=== PATIENT | female | born 1980 | race Two or more races ===

== ENCOUNTER 2018-03-28 19:39 | Emergency (ER) | payer MEDICARE ==
[~2018-03-28] VITALS: Ht 167.6 cm; Wt 66.4 kg
[2018-03-28] MEDS ORDERED: ICOS1CAP PO (19:55)
[2018-03-28] MEDS ORDERED: ROSU20 PO (19:55)
[2018-03-28] MEDS ORDERED: LISI-660 PO (19:55)
[2018-03-28] MEDS ORDERED: INSULIN REGULAR, HUMAN 100 UNITS/ML IVP ONE ×2 (20:00→22:45)
[2018-03-28] MEDS ORDERED: POTA8CAP10 PO (20:00)
[2018-03-28] MEDS ORDERED: SODIUM CHLORIDE 0.9% 1,000 ML IV ONE (20:00)
[2018-03-28] MEDS ORDERED: INSLAN SQ (20:00)
[2018-03-28] MEDS ORDERED: SERT50TA12 PO (20:00)
[2018-03-28] MEDS ORDERED: METO-296 PO (20:00)
[2018-03-28] MEDS ORDERED: FENO160 PO (20:00)
[2018-03-28] MEDS ORDERED: INSU100V SQ (20:00)
[2018-03-28] MEDS ORDERED: FAMO20 PO (20:01)
[2018-03-28] MEDS ORDERED: ASPI81 PO (20:01)
[2018-03-28 20:22] LABS: BASOPHILS % (AUTO) 1.8 % (0.0-2.0); EOSINOPHILS % (AUTO) 2.6 % (1.0-6.0); HEMATOCRIT 30.8 % (36-46); HEMOGLOBIN 10.2 g/dL (12.0-16.0); LYMPHOCYTES # (AUTO) 1.9 K/uL (1.0-4.8); LYMPHOCYTES % (AUTO) 21.7 % (22.0-44.0); MEAN CORPUSCULAR HEMOGLOBIN 24.3 pg (26.0-34.0); MEAN CORPUSCULAR HGB CONC 33.1 G/dL (31.0-37.0); MEAN CORPUSCULAR VOLUME 73 fL (80-100); MONOCYTES # (AUTO) 0.5 K/uL (0.1-1.0); MONOCYTES % (AUTO) 5.3 % (2.0-9.0); NEUTROPHILS % (AUTO) 68.6 % (40.0-70.0); PLATELET COUNT (AUTO) 352 K/uL (150-450); RED BLOOD CELL COUNT(AUTO) 4.19 MIL/uL (4.00-5.20); RED CELL DISTRIBUTION WIDTH 13.9 % (11.5-14.5)
[2018-03-28 20:48] LABS: ABG BASE EXCESS -4.5 mmol/L (-2.0-3.0); ABG CARBOXYHEMOGLOBIN 0.2 % (0.0-1.5); ABG HCO3 21.2 mmol/L (22.0-26.0); ABG OXYGEN CONTENT 15.8 mL/dL (15.0-23.0); ABG OXYGEN SATURATION 96.8 % (95.0-98.0); ABG OXYHEMOGLOBIN 96.6 % (94.0-100.0); ABG PCO2 37 mmHg (35-45); ABG PH 7.371 (7.350-7.450); ABG TOTAL HEMOGLOBIN 11.5 G/dL (12.0-18.0); PO2, ARTERIAL BG 109.1 mmHg (92.0-100.0); SOURCE, BLOOD GAS ARTERIAL; TEMPERATURE, FAHRENHEIT, BG 98.6 FAHREN (96.0-98.6)
[2018-03-28 20:49] LABS: SITE, BLOOD GAS RT RADIAL
[2018-03-28 21:22] LABS: APPEARANCE,URINE CLEAR (CLEAR); BILIRUBIN,URINE NEGATIVE (NEGATIVE); GLUCOSE, URINE (UA) >=1000 mg/dL (NEGATIVE); KETONES,URINE NEGATIVE (NEGATIVE); LEUKOCYTE ESTERASE ,URINE NEGATIVE (NEGATIVE); NITRATE,URINE NEGATIVE (NEGATIVE); OCCULT BLOOD,URINE SMALL (NEGATIVE); PROTEIN,URINE SEE CONFIRM (NEGATIVE); UROBILINOGEN,URINE 0.2 mg/dL (<=1.0)
[2018-03-28] MEDS ORDERED: HydrALAZINE HCL 20 MG/ML VIAL IVP ONE (21:30)
[2018-03-28 21:32] LABS: AMPHET/METH SCREEN,URINE NEGATIVE (NEGATIVE); BARBITURATE SCREEN, URINE NEGATIVE (NEGATIVE); BENZODIAZEPINES SCREEN,URINE NEGATIVE (NEGATIVE); CANNABINOID SCREEN,URINE NEGATIVE (NEGATIVE); COCAINE SCREEN,URINE NEGATIVE (NEGATIVE); METHADONE SCREEN, URINE NEGATIVE (NEGATIVE); OPIATE SCREEN,URINE NEGATIVE (NEGATIVE); PHENCYCLIDINE SCREEN,URINE NEGATIVE (NEGATIVE)
[2018-03-28 21:43] LABS: SULFOSALICYLIC ACID,URINE 4+ (Negative)
[2018-03-28 21:44] LABS: RBC,URINE 0-2 /HPF (0-2)
[2018-03-28 21:45] LABS: BACTERIA,URINE Moderate /HPF (None Seen)
[2018-03-28 21:46] LABS: SQUAMOUS EPITHELIAL CELL,UR Few /LPF (None Seen)
[2018-03-28 21:48] LABS: GLUCOSE,POINT OF CARE 537 MG/DL (70-110)
[2018-03-28 22:02] LABS: ACETONE,BLOOD TRACE (NEGATIVE)
[2018-03-28 22:07] LABS: ALANINE AMINOTRANSFERASE 12 U/L (12-78); ALBUMIN 1.3 g/dL (3.4-5.0); ALKALINE PHOSPHATASE 89 U/L (46-116); ANION GAP 8 mmol/L (8-16); ASPARTATE AMINOTRANSFERASE 12 U/L (15-37); BILIRUBIN,TOTAL 0.2 mg/dL (0.1-1.0); CALCIUM, TOTAL 7.4 mg/dL (8.8-10.5); CARBON DIOXIDE 25 mmol/L (22-29); CHLORIDE 98 mmol/L (98-107); CREATININE 2.87 mg/dL (0.60-1.30); GLOMERULAR FILTR. RATE CALC 18 mL/min (>60); HCG,QUANTITATIVE < 1 mIU/mL (0-6); SODIUM SERUM 131 mmol/L (136-145); TOTAL PROTEIN, SERUM 5.6 g/dL (6.4-8.2); UREA NITROGEN, BLOOD 29 mg/dL (7-18)
[2018-03-28 22:08] LABS: GLUCOSE,RANDOM 657 mg/dL (70-110); POTASSIUM 2.2 mmol/L (3.5-5.1)
[2018-03-28 22:29] LABS: GLUCOSE,POINT OF CARE 483 MG/DL (70-110)
[2018-03-28] MEDS ORDERED: POTASSIUM CHLORIDE 10% 40 MEQ/30 ML LIQUID UDCUP PO ONE (23:00)
[2018-03-28] MEDS ORDERED: POTASSIUM CHL 10 MEQ/WATER 50 ML IV ONE (23:00)
[2018-03-29 00:49] LABS: GLUCOSE,POINT OF CARE 384 MG/DL (70-110)
[2018-03-29 00:49] LABS: GLUCOSE,POINT OF CARE 411 MG/DL (70-110)
[2018-03-29] MEDS ORDERED: POTASSIUM CHLORIDE 10% 40 MEQ/30 ML LIQUID UDCUP PO ONE (01:30)
[2018-03-29] MEDS ORDERED: POTASSIUM CHL 10 MEQ/WATER 50 ML IV ONE (01:30)
[2018-03-29 01:56] LABS: CALCIUM, TOTAL 7.3 mg/dL (8.8-10.5); CREATININE 2.69 mg/dL (0.60-1.30); POTASSIUM 3.3 mmol/L (3.5-5.1)
[2018-03-29 02:25] VITALS: BP 180/91
== END 2018-03-29 02:41 | disposition short-term general hospital (02) ==
LOC: EMS 19:41
DX: E11.65 Type 2 diabetes mellitus with hyperglycemia (principal); E87.6 Hypokalemia; N17.9 Acute kidney failure, unspecified; R55 Syncope and collapse; Z79.4 Long term (current) use of insulin; Z79.82 Long term (current) use of aspirin; Z79.899 Other long term (current) drug therapy; Z86.73 Personal history of transient ischemic attack (TIA), and cerebral infarction without residual deficits
CPT/HCPCS: 36415; 51702; 70450; 71045; 80048; 80053; 80307; 81001; 82009; 82805; 82948; 82962; 84484; 84702; 85025; 87086; 93005; 96361; 96365; 96366; 96374; 96375; 96376; 99291; J0360; J1815; J3480 ×2; J7030 ×2